=== PATIENT | female | born 1955 | race Caucasian/White ===

== ENCOUNTER → 2021-07-26 | Outpatient (CLI) | payer MEDICARE ==
[~2021-07-26] VITALS: Ht 157.5 cm; Wt 66.4 kg
[~2021-07-26] MED LIST: AMLO-250 PO; ASPI-999 PO; HYDR-3817 PO; ONDA8TAB13 PO; PANT40TA52 PO
== END ==
LOC: PREOP 10:31
PROVIDERS: ATTEND Surgery
DX: Z01.818 Encounter for other preprocedural examination (principal)

== ENCOUNTER 2021-07-27 10:27 | Day surgery (SDC) | payer MEDICARE ==
[~2021-07-27] VITALS: Ht 157.5 cm; Wt 66.4 kg
[2021-07-27] VITALS (11 sets, daily range): BP systolic 128–164; BP diastolic 76–92
--- NOTE | 2021-07-27 06:22 | HISTORY AND PHYSICAL ---
DATE OF SERVICE: DATE OF ADMISSION: 07/27/2021. ATTENDING PRIMARY CARE PHYSICIAN: Tricia Hodges DO HISTORY OF PRESENT ILLNESS: The patient is a 65-year-old female, who initially presented to [facility] Emergency Department with significant epigastric pain and nausea and vomiting as well as diarrhea. A CT scan was performed, which did show inflammation of the pancreas as well as gallstones consistent with gallstone pancreatitis. She was treated medically with pain control and IV fluids and over approximately 5 days, this was able to resolve. She does not report any epigastric pain anymore and her liver function enzymes as well as amylase and lipase have normalized. However, she continues to have nausea and vomiting after eating food. PAST MEDICAL HISTORY: 1. Hypertension. 2. Peptic ulcer disease. PAST SURGICAL HISTORY: Right oophorectomy, total hysterectomy and appendectomy, pelvic sling placement. ALLERGIES: No known drug allergies. MEDICATIONS: Amlodipine 5 mg daily, lisinopril 40 mg daily, hydrochlorothiazide 12.5 mg daily. SOCIAL HISTORY: Negative smoke, negative alcohol. FAMILY HISTORY: Brother, myocardial infarction, age 48. Her vital signs stable. REVIEW OF SYSTEMS: A well-nourished female, currently in no acute distress. She is not experiencing any shortness of breath or difficulty breathing. No chest pain, palpitations, diaphoresis. Intermittent episodes of nausea usually after eating a meal. No hematemesis, no coffee ground emesis. No diarrhea, constipation, no red blood per rectum, no dark tarry stools. No fever, chills, no recent inadvertent weight loss. All other review of systems negative. PHYSICAL EXAMINATION: CHEST: Clear. Good breath sounds bilaterally. HEART: Regular, no murmurs. EXTREMITIES: No lower extremity edema, negative Homans sign. HEENT: No scleral icterus. NECK: No cervical lymphadenopathy. ABDOMEN: Soft, nondistended. There is mild discomfort in the right upper abdominal quadrant upon deep palpation. No peritoneal signs. SKIN: Warm, dry. ASSESSMENT AND PLAN: A 65-year-old female with a history of gallstone pancreatitis as well as symptomatic cholelithiasis. Her gallstone pancreatitis was approximately 6 weeks ago and since that time, her symptomatology as well as laboratory work have normalized. The natural history of gallbladder disease was explained to the patient and she is in full understanding of the risks and benefits of surgery and would like to proceed with a laparoscopic cholecystectomy, which we will schedule. Job ID: [id number] DocumentID: [id number] Dictated Date: 07/25/2021 16:00:16 Mobile Equipment Servicer Date: 07/25/2021 16:26:24 Dictated By: JULIA COTTON MD
[~2021-07-27 10:27] MED LIST changes: -HYDR-3817 PO
--- NOTE | 2021-07-27 11:02 | Progress Note-Pre Operative ---
Pre-Operative Progress Note H&P Reviewed The H&P was reviewed, patient examined and no changes noted. Date Seen by Provider: Jul 27, 2021 Time Seen by Provider: 11:00 Date H&P Reviewed: Jul 27, 2021 Time H&P Reviewed: 11:00 Pre-Operative Diagnosis: sx chronic calculous cholecystitis. JULIA COTTON MD Jul 27, 2021 11:02
[2021-07-27] MEDS ORDERED: HYDR-3817 PO ×2 (11:04)
--- NOTE | 2021-07-27 11:05 | Discharge Inst-Surgical ---
D/C Lap Instructions-YURY New, Converted, or Re-Newed RX: RX on Chart Follow Up Appt in 2 weeks Activity as tolerated No driving for 24 hours No driving while on pain medications Incentive Spirometry use every 2 hours while awake Regular Diet Symptoms to Report: Fever over 101 degree F, Nausea/Vomiting Infection Signs and Symptoms to report: Increased redness, Foul odor of wound, Increased drainage Bathing instructions: May shower Operative Area Clean/Dry; Keep incision clean/dry If any problems/questions: Contact your physician or go to Emergency Room JULIA COTTON MD Jul 27, 2021 11:05
[2021-07-27] MEDS ORDERED: LIDOCAINE/EPI 1%-1:100,000 (XYLOCAINE) 20ML ONE (11:06)
[2021-07-27] MEDS ORDERED: ONDANSETRON 4 MG/2 ML (SDV) Z0FRAN IVP PRN (11:15)
[2021-07-27] MEDS ORDERED: morphine INJ 10 MG/ML 1ML (SYR OR VIAL) IVP PRN ×2 (11:15)
[2021-07-27] MEDS ORDERED: ACETAMINOPHEN 325 MG TABLET PO PRN (11:15)
[2021-07-27] MEDS ORDERED: oxyCODONE/APAP 5/325MG (PERCOCET 5) TABLET PO PRN (11:15)
[2021-07-27] MEDS ORDERED: HYDROcodone/APAP 5 MG/325 MG (LORTAB) TAB PO ONE (11:15)
[2021-07-27] MEDS ORDERED: LIDOCAINE PF 2% 5 ML (XYLOCAINE) VIAL ONE (12:22)
[2021-07-27] MEDS ORDERED: fentaNYL INJ 100 MCG/2 ML AMP ONE (12:22)
[2021-07-27] MEDS ORDERED: proPOfol 200 MG/20 ML (DIPRIVAN) VIAL IV ONE (12:22)
[2021-07-27] MEDS ORDERED: SEVOFLURANE (ULTANE) 15 ML INHAL SOLN ONE ×2 (12:22→14:02)
[2021-07-27] MEDS ORDERED: ROCURONIUM 10 MG/ML 5 ML SYRINGE IV ONE (12:22)
[2021-07-27] MEDS ORDERED: MIDAZOLAM 2 MG/2 ML (VERSED) VIAL ONE (12:23)
[2021-07-27] MEDS ORDERED: WATER (STERILE) FOR INJECTION 10 ML ONE (12:46)
[2021-07-27] MEDS ORDERED: ceFAZolin INJECTION 1,000 MG ONE (12:46)
[2021-07-27] MEDS: ceFAZolin INJECTION 1,000 MG in WATER (STERILE) FOR INJECTION 10 ML IV ONE ×2 (13:18→13:19)
[2021-07-27] MEDS ORDERED: NEOSTIGMINE 3 MG/3 ML VIAL ONE (14:01)
[2021-07-27] MEDS ORDERED: GLYCOPYRROLATE 0.2 MG/ML (ROBINUL) 2 ML VIAL ONE (14:01)
--- NOTE | 2021-07-27 14:06 | Progress Note-Post Operative ---
Post-Operative Progess Note Surgeon (s)/Director Of Donor Relations (s) Surgeon JULIA COTTON MD Director Of Donor Relations: devin wise STOPE MINER Pre-Operative Diagnosis chronic calculous cholecystitis Post-Operative Diagnosis same Procedure & Operative Findings Date of Procedure 07/27/21 Procedure Performed/Findings laparoscopic cholecystectomy Anesthesia Type get Estimated Blood Loss Estimated blood loss (mL): minimal Specimens/Packing Specimens Removed gallbladder JULIA COTTON MD Jul 27, 2021 14:06
--- NOTE | 2021-07-27 15:01 | Anesthesia-General Post-Op ---
General Patient Condition Mental Status/LOC: Same as Preop Cardiovascular: Satisfactory Nausea/Vomiting: Absent Respiratory: Satisfactory Pain: Controlled Complications: Absent Post Op Complications Complications None Follow Up Care/Instructions Patient Instructions None needed. Anesthesia/Patient Condition Patient Condition Patient is doing well, no complaints, stable vital signs, no apparent adverse anesthesia problems. No complications reported per nursing. ASHLEY SUMMERS CRNA Jul 27, 2021 15:01
--- NOTE | 2021-07-27 15:47 | OPERATIVE REPORT ---
DATE OF SERVICE: 07/27/2021 ATTENDING PRIMARY CARE PHYSICIAN: Dr. Hodges. PREOPERATIVE DIAGNOSIS: Symptomatic chronic calculous cholecystitis. POSTOPERATIVE DIAGNOSIS: Symptomatic chronic calculous cholecystitis. PROCEDURE: Laparoscopic cholecystectomy. SURGEON: Julia Cotton MD. WOVEN LABEL DESIGNER: Zeeshan Hope APRN. ANESTHESIA: General endotracheal. ESTIMATED BLOOD LOSS: Minimal. FINDINGS: Multiple gallstones and thick bile. DISPOSITION: The patient tolerated the procedure well. INDICATIONS: The patient is a 65-year-old female who initially presented to [facility] Emergency Department with significant epigastric pain and nausea and vomiting as well as diarrhea. A CT scan was performed, which showed inflammation of the pancreas as well as gallstones consistent with gallstone pancreatitis. She was treated medically with pain control, IV fluids and bowel rest and over approximately five days, this was able to resolve. Since that time, she has not had the epigastric pain and her liver function enzymes as well as amylase and lipase have normalized; however, she does continue to have nausea and vomiting after eating meals. DESCRIPTION OF PROCEDURE: The patient was brought to the operating room, laid supine on the table. After adequate IV pain and sedative medications and general endotracheal intubation, the abdomen was prepped and draped in standard surgical fashion. A 0.5% Marcaine with epinephrine was used to anesthetize overlying skin left upper abdominal quadrant and a transverse skin incision made using a 15 blade. An 0 silk suture was applied to the medial aspect incision for retraction with a low opening pressure of 0 mmHg. The abdomen was then insufflated to 15 mmHg pressure. The Veress needle removed, and a 5 mm XL trocar placed followed by a 5 mm 45-degree angle laparoscope visualizing the peritoneal cavity. A 4-quadrant abdominal exploration was performed. There was a slightly distended gallbladder as well as mild gallbladder wall thickening. The skin and peritoneal lining were anesthetized using 0.5% Marcaine with epinephrine and a transverse skin incision made using 15 blade. In a similar manner, a right upper abdominal quadrant 5 mm port was placed. The patient was then placed in reverse Trendelenburg position as well as plane right side up, left side down. The fundus of the gallbladder was then retracted anteriorly and superiorly. The omental adhesions were then taken down using electrocautery on hook instrument. The hepatoduodenal ligament was then opened using cautery as well as blunt dissection on the hook instrument as well as a [place] dissector. The entire critical view of safety was identified including the triangle of Calot as well as the cystic duct and artery as only two structures going into the gallbladder as well as the cystic plate behind the proximal gallbladder. A timeout was then taken, and the cystic duct and artery were then clipped proximally and distally and cut with EndoShears. The gallbladder was then dissected off the liver bed using cautery with visualization of good hemostasis as well as no leaking ducts of Luschka. The gallbladder was removed through the 10 mm port site using an EndoCatch bag. The 10 mm port site fascia and peritoneum were then closed under direct visualization using a Abhishek-Maryse device and 0 Vicryl suture. The abdomen was desufflated and remaining ports removed. All skin incisions were closed using 4-0 Monocryl running subcuticular sutures. Wounds were then cleaned and covered with Dermabond. The patient tolerated the procedure well. We will start IV normal pain medication as well as a clear liquid diet. Once she is tolerating clears, has good pain control with oral pain medications, ambulating well, we will discharge her home. She will be instructed to do no heavy lifting or exertion for the next two weeks as well. Job ID: [id number] DocumentID: [id number] Dictated Date: 07/27/2021 14:22:15 Steam Tunnel Feeder Date: 07/27/2021 15:46:54 Dictated By: JULIA COTTON MD
[2021-07-27] MEDS ORDERED: LACTATED RINGERS 1,000 ML IV ONE (15:57)
[2021-07-27] MEDS ORDERED: LACTATED RINGERS 1,000 ML IV PRN (16:00)
== END 2021-07-27 16:55 | disposition home or self-care (01) ==
LOC: SDC 10:27
PROVIDERS: ATTEND Surgery
DX: K80.10 Calculus of gallbladder with chronic cholecystitis without obstruction (principal); K85.10 Biliary acute pancreatitis without necrosis or infection; I10 Essential (primary) hypertension; K21.9 Gastro-esophageal reflux disease without esophagitis; K27.9 Peptic ulcer, site unspecified, unspecified as acute or chronic, without hemorrhage or perforation; Z79.899 Other long term (current) drug therapy; Z79.82 Long term (current) use of aspirin
CPT/HCPCS: 36430; 87081; 88304